=== PATIENT | female | born 1940 | race Caucasian/White ===

== ENCOUNTER 2018-01-02 08:06 | Day surgery (SDC) | payer MEDICARE, OTHER ==
[~2018-01-02] VITALS: Ht 165.1 cm; Wt 60.5 kg
[~2018-01-02 08:06] MED LIST: ASPI-1005 PO; CEFU500T67 PO; ESOM20CA34 PO; EZET10 PO; LOSA25TA21 PO; METO25TA6 PO; ONDA8TAB8 PO; SODIUM CHLORIDE 0.9% 1000ML 1,000 ML IV ONE
[2018-01-02 08:36] VITALS: BP 169/76
[2018-01-02] MEDS ORDERED: METO50TA18 PO (09:08)
[2018-01-02] MEDS ORDERED: LOSA25TA21 PO (09:08)
[2018-01-02] MEDS ORDERED: EZET10 PO (09:09)
[2018-01-02] MEDS ORDERED: ERGO500014 PO (09:18)
[2018-01-02] MEDS ORDERED: PROPOFOL 10 MG/ML 20ML VIAL IV ONE (10:12)
[2018-01-02 10:35] VITALS: BP 86/38
== END 2018-01-02 11:10 | disposition home or self-care (01) ==
LOC: DAH 08:06 → ENDO 08:06
PROVIDERS: ATTEND Internal Medicine Gastroenterology
DX: K56.2 Volvulus (principal); Z86.010 Personal history of colon polyps; K21.9 Gastro-esophageal reflux disease without esophagitis; K58.9 Irritable bowel syndrome, unspecified; I10 Essential (primary) hypertension; E78.5 Hyperlipidemia, unspecified; Z90.710 Acquired absence of both cervix and uterus; Z98.890 Other specified postprocedural states
CPT/HCPCS: 45378; 93005; A4606; J2704; J7030

== ENCOUNTER 2022-07-29 18:32 | Emergency (ER) | payer MEDICARE, OTHER ==
[~2022-07-29] VITALS: Ht 162.6 cm; Wt 65.8 kg
[~2022-07-29 18:32] MED LIST changes: -CEFU500T67 PO; +ERGO500014 PO; -EZET10 PO; +EZET10TA13 PO; -LOSA25TA21 PO; +LOSA25TA41 PO; -METO25TA6 PO; +METO50TA18 PO; -ONDA8TAB8 PO; -SODIUM CHLORIDE 0.9% 1000ML 1,000 ML IV ONE
[2022-07-29 19:20] VITALS: BP 168/75
[2022-07-29] MEDS ORDERED: METH4TAB3 PO (19:53)
[2022-07-29] MEDS ORDERED: SOLU-MEDROL 40MG VIAL IJ ONE (20:00)
[2022-07-29] MEDS ORDERED: SOLU-MEDROL 40MG VIAL ONE (20:04)
== END 2022-07-29 20:19 | disposition home or self-care (01) ==
LOC: EDH 18:32
DX: S30.0XXA Contusion of lower back and pelvis, initial encounter (principal); I10 Essential (primary) hypertension; Z79.899 Other long term (current) drug therapy; Z79.82 Long term (current) use of aspirin; Z98.890 Other specified postprocedural states; W19.XXXA Unspecified fall, initial encounter; Y93.89 Activity, other specified; Y92.89 Other specified places as the place of occurrence of the external cause; Y99.8 Other external cause status
CPT/HCPCS: 99283; 96374; 72170; J2920

== ENCOUNTER → 2023-02-05 | Outpatient (CLI) | payer MEDICARE, OTHER ==
[~2023-02-05] MED LIST changes: +METH4TAB3 PO
== END | disposition home or self-care (01) ==
LOC: RAH 14:21
PROVIDERS: ATTEND Family Medicine
DX: M19.021 Primary osteoarthritis, right elbow (principal); M25.421 Effusion, right elbow; M79.89 Other specified soft tissue disorders
CPT/HCPCS: 73070

== ENCOUNTER → 2023-12-12 | Outpatient (CLI) | payer MEDICARE, OTHER ==
[~2023-12-12] MED LIST changes: -EZET10TA13 PO; +EZET10TA81 PO; +IOHEXOL-350 75 ML VIAL IV ONE
== END | disposition home or self-care (01) ==
LOC: RAH 11:08
PROVIDERS: ATTEND Family Medicine
DX: K44.9 Diaphragmatic hernia without obstruction or gangrene (principal); J44.9 Chronic obstructive pulmonary disease, unspecified; E04.2 Nontoxic multinodular goiter; R79.1 Abnormal coagulation profile; I51.7 Cardiomegaly; M47.814 Spondylosis without myelopathy or radiculopathy, thoracic region
CPT/HCPCS: 71270; Q9967